=== PATIENT | female | born 1955 | race Caucasian/White ===

== ENCOUNTER 2021-05-03 16:16 | Inpatient (IN) | payer MEDICARE, OTHER, SELFPAY ==
[2021-05-03] VITALS (7 sets, daily range): BP systolic 100–116; BP diastolic 76–89; PULSE 79–109; RESP 18–22; TEMP 35.9–36.9; O2SAT 89–97; BMI 29.0; BMI 29.9
--- NOTE | 2021-05-03 17:27 | EKG12_ITS ---
Test Reason : SOB Blood Pressure : / mmHG Vent. Rate : 098 BPM Atrial Rate : 098 BPM P-R Int : 142 ms QRS Dur : 070 ms QT Int : 344 ms P-R-T Axes : 034 004 010 degrees QTc Int : 439 ms Normal sinus rhythm Nonspecific T wave abnormality Abnormal ECG Confirmed by REMIGIO ROSADO, PROSPER ([id number]), deputy editor in chief ELADIA ZAFAR ([id number]) on 05/05/2021 9:12:57 AM Referred By: TERE/APRIL Confirmed By:PROSPER FLOOD MD
--- NOTE | 2021-05-03 17:27 | RAD_ITS ---
STUDY: X-RAY CHEST REASON FOR EXAM: Female, 65 years old. cough TECHNIQUE: AP portable COMPARISON: None. FINDINGS: Diminished inspiratory effort is seen. There is minor atelectasis or infiltrate seen at the right base and more pronounced consolidation in left lower lobe with possible tiny effusion.. There is no demonstrated pleural abnormality. Normal size heart. Normal mediastinum and adeola. Normal visualized pulmonary arteries. Normal visualized aortic arch and descending thoracic aorta. Dorsal spine demonstrates mild scoliosis. Normal visualized ribs, clavicles, and shoulders. There is no demonstrated abnormality of the visualized soft tissue structures of the upper abdomen. RAD/Chest 1 View (Portable) IMPRESSION: Diminished inspiratory effort and mild right basilar atelectasis or infiltrate in the right lower lobe and more pronounced infiltrate at the left base with possible tiny effusion Electronically Signed: Kamar Butt MD at 18:33 EDT , Service support ,
--- NOTE | 2021-05-03 17:31 | NURSING ---
NO OLD EKGS
[2021-05-03] MEDS: Acetaminophen 500 MG Tablet 1000 MG PO (17:53)
--- NOTE | 2021-05-03 18:01 | EDS_ITS ---
HPI History of Present Illness Chief Complaint: Shortness of Breath Informant: patient Narrative Narrative: Patient is a 65-year-old female that denies any significant past medical history presenting with worsening cough, shortness of breath and chest pain. Patient was diagnosed with Covid at the [facility] urgent care on 04/29. She notes she started having symptoms a week before that. It started with a cough and then she had 2 days of fever, decreased appetite and body aches. Her cough is persisted and she had a chest x-ray on the third that showed pneumonia from Covid. She was placed on doxycycline, albuterol and Mucinex. She does not wear oxygen at home. Her symptoms have worsened today so she came to the emergency room to be evaluated further. She states she does not have a home pulse oximeter. She has not had her Covid vaccine. No other complaints at this time. PFSH PFSH Home Medications albuterol sulfate [ProAir HFA] 2 puff INHALATION Q4H PRN 05/03/21 [History Last Taken 05/03/21] doxycycline hyclate 100 mg PO BID 05/03/21 [History Last Taken 05/03/21] guaifenesin [Mucinex] 600 mg PO BID 05/03/21 [History Last Taken 05/03/21] Allergy/AdvReac Type Severity Reaction Status Date / Time No Known Allergies Allergy Verified 05/03/21 16:20 Family History Sister Uterine cancer Social History Smoking Status: Never smoker alcohol intake: never substance use type: does not use ROS ROS ED Constitutional Constitutional ED: Reports chills and fever(s) Eyes Eyes: Denies blurry vision or change in vision ENT ENT ED: Reports other Details: dry mouth ; Denies ear pain, rhinorrhea or sore throat Cardiovascular Cardiovascular: Reports chest pain; Denies palpitations Respiratory/Chest Respiratory/Chest: Reports cough, dyspnea and dyspnea on exertion; Denies sputum Gastrointestinal Gastrointestinal: Denies abdominal pain, diarrhea, nausea or vomiting Genitourinary Genitourinary ED: Denies dysuria Musculoskeletal Musculoskeletal: Reports myalgias; Denies arthralgias Integumentary Denies rash Neurologic Neurologic: Reports headache(s) and weakness Psychiatric Psychiatric: Denies anxiety or depression EXAM Physical Exam Const Vital Signs: 05/03/21 16:17 05/03/21 16:22 05/03/21 17:53 Temperature 97.5 F L Temperature Source Temporal Pulse Rate 109 H 106 H Respiratory Rate 20 H 18 Respiratory Effort Respiratory Pattern Blood Pressure 100/79 Blood Pressure Mean 86 Pulse Ox 89 92 93 Oxygen Delivery Method Room Air Nasal Cannula Nasal Cannula Oxygen Flow Rate (L/min) 2 2 05/03/21 17:57 05/03/21 20:06 Temperature 96.7 F L Temperature Source Temporal Pulse Rate 83 Respiratory Rate 22 H Respiratory Effort Normal Non-Labored Respiratory Pattern Normal Blood Pressure 116/89 H Blood Pressure Mean 98 Pulse Ox 97 Oxygen Delivery Method Nasal Cannula Oxygen Flow Rate (L/min) 2 Positive well nourished and well developed General Appearance ED: well developed and NAD HEENT Reports TM's clear and dry mucous membranes atraumatic Tympanic Membrane ED: Yes TM's clear Mouth ED: Yes dry mucous membranes Mouth: dry mucous membranes Eyes PERRL and EOMs intact bilaterally Neck no lymphadenopathy, supple and no meningeal signs Chest Wall Chest Narrative: Tenderness palpation in the mid chest Resp normal respiratory effort Auscultation: diminished lung sounds bilateral lower; Negative for wheezes Cardio regular rate, regular rhythm and no murmurs GI non-tender and non-distended Auscultation: normoactive bowel sounds Palpation: soft Back/Spine normal to inspection Extremity normal to inspection General Extremety ED: Negative for edema or tenderness General Extremity: Negative for edema Neuro oriented x3 Neuro Narrative: No focal deficits appreciated Sensorium / Orientation: alert Motor Exam: general weakness Psych mental status grossly normal Thought Process: normal thought process Skin Lesions: no lesions Rashes: no rashes MDM MDM MDM Narrative Medical decision making narrative: Patient is evaluated for increased shortness of breath, cough and overall feeling unwell in the setting of a Covid diagnosis. She has been on doxycycline for the past 4 days as well for possible superimposed pneumonia and is not improving. Patient is requiring supplemental oxygen. She does not have a leukocytosis and her CMP is largely unremarkable. Lactate is normal. D-dimer is elevated and CTA performed. It shows findings consistent with Covid pneumonia as well as concern for possible superimposed bacterial pneumonia. Concerning patient feels that she is getting worse and is having increased hypoxia in the setting of possible bacterial and viral pneumonia she will require admission as she has failed outpatient antibiotics. Patient is agreeable with this plan of care. She is given Decadron, azithromycin and Rocephin in the emergency room. Lab Data Attestation: I reviewed the patient's lab results. Labs: Laboratory Results - last 24 hr 05/03/21 05/03/21 05/03/21 17:50 17:50 17:50 WBC 7.1 RBC 5.72 H Hgb 15.4 H Hct 47.9 H MCV 83.7 MCH 26.9 L MCHC 32.2 RDW Std Deviation 37.7 RDW Coeff of Tc 12.4 Plt Count 199 MPV 10.9 Immature Gran % (Auto) 0.600 Neut % (Auto) 79.9 H Lymph % (Auto) 10.9 L [place] % (Auto) 8.5 Eos % (Auto) 0.0 Baso % (Auto) 0.1 Absolute Neuts (auto) 5.6 Absolute Lymphs (auto) 0.77 L Nucleated RBC % 0 D-Dimer Quant (PE/DVT) 0.85 H* Sodium 135 L Potassium 3.6 Chloride 100 Carbon Dioxide 27.0 Anion Gap 8 BUN 16 Creatinine 0.63 Estim Creat Clear Calc 63.95 Est GFR (MDRD) Af Amer 122 Est GFR (MDRD) Non-Af 101 BUN/Creatinine Ratio 25.5 H Glucose 108 H Lactic Acid Calcium 9.0 Total Bilirubin 0.80 AST 25 ALT 25 Alkaline Phosphatase 147 H Troponin I High Sens 5 Total Protein 8.2 Albumin 3.2 Globulin 5.0 H Albumin/Globulin Ratio 0.6 L Procalcitonin 05/03/21 05/03/21 17:50 17:50 WBC RBC Hgb Hct MCV MCH MCHC RDW Std Deviation RDW Coeff of Tc Plt Count MPV Immature Gran % (Auto) Neut % (Auto) Lymph % (Auto) [place] % (Auto) Eos % (Auto) Baso % (Auto) Absolute Neuts (auto) Absolute Lymphs (auto) Nucleated RBC % D-Dimer Quant (PE/DVT) Sodium Potassium Chloride Carbon Dioxide Anion Gap BUN Creatinine Estim Creat Clear Calc Est GFR (MDRD) Af Amer Est GFR (MDRD) Non-Af BUN/Creatinine Ratio Glucose Lactic Acid 1.4 Calcium Total Bilirubin AST ALT Alkaline Phosphatase Troponin I High Sens Total Protein Albumin Globulin Albumin/Globulin Ratio Procalcitonin 0.04 Radiography Chest X-Ray - ED: 1 View, Read by ED Physician, Read by Radiologist and - (Multifocal infiltrates) Diagnostic Testing: Radiology Impression Chest X-Ray 05/03/21 17:27 IMPRESSION: Diminished inspiratory effort and mild right basilar atelectasis or infiltrate in the right lower lobe and more pronounced infiltrate at the left base with possible tiny effusion Electronically Signed: Kamar Butt MD at 18:33 EDT , Service support , Chest CTA 05/03/21 18:48 IMPRESSION: Findings which may be consistent with Covid 19 pneumonia with coexisting bilateral lower lobe infiltrates possibly representing superimposed bacterial pneumonia. Clinical correlation recommended No evidence for pulmonary embolus Electronically Signed: Kamar Butt MD at 20:18 EDT , Service support , Rhythm Strip Rhythm Strip: Sinus Rhythm Rate: 98 Ectopy: None EKG Initial EKG: Attestation: I personally reviewed and interpreted this EKG as follows: Interpretation: Sinus Rhythm Comments: Normal sinus rhythm at a rate of 98 Subtle left axis deviation Normal intervals Discharge Plan Dx/Rx/DC Orders Clinical Impression: COVID-19, Pneumonia, Acute respiratory failure with hypoxia Disposition Disposition: Acute Care [facility] Discharge Date/Time: 05/03/21 21:24
[2021-05-03 18:06] LABS: Absolute Lymphocyte Count 0.77 X10^3/uL (0.83-4.51); Absolute Neutrophil Count 5.6 X10^3/uL (2.0-7.7); Basophil# 0.01 X10^3/uL; Basophil% 0.1 % (0-1); Hematocrit 47.9 % (37-47); Hemoglobin 15.4 g/dL (12.0-15.0); Lymphocyte # 0.77 X10^3/ul (0.83-4.51); Lymphocyte % 10.9 % (19-41); Mean Corp Hgb Conc 32.2 g/dL (32-36); Mean Corpuscular Hgb 26.9 pg (27.0-32.0); Mean Corpuscular Volume 83.7 fL (81-99); Mean Platelet Vol. 10.9 fl (6.2-12.0); Monocyte% 8.5 % (0-10); NRBC Flagged by Analyzer 0 % (0-5); Neutrophil # 5.63 X10^3/uL (2.7-7.7); Neutrophil % 79.9 % (47-70); Platelet Count 199 K/mm3 (150-450); RBC Distribution Width CV 12.4 % (11.6-14.6); RBC Distribution Width SD 37.7 fl (35.1-43.9); Red Blood Count 5.72 M/mm3 (4.2-5.4); White Blood Count 7.1 K/mm3 (4.4-11.0)
[2021-05-03 18:25] LABS: ALB/GLOB Ratio 0.6 RATIO (0.9-2.4); AST(SGOT) 25 U/L (15-37); Alanine Aminotransfer ALT/SGPT 25 U/L (13-56); Albumin, Serum 3.2 g/dL (3.2-5.0); Alkaline Phosphatase 147 U/L (45-117); Anion Gap 8 (5-15); BUN 16 mg/dL (7-18); BUN/Creat Ratio 25.5 RATIO (10-20); Chloride 100 mmol/L (98-107); Creatinine, Serum 0.63 mg/dL (0.55-1.02); EST Glomerular Filtration Rate 101 mL/min (>60); Est Glom Filt Rate - Afr Amer 122 mL/min (>60); Estimated Creatinine Clearance 63.95 ml/min; Glucose 108 mg/dL (74-106); Potassium 3.6 mmol/L (3.5-5.1); Protein, Total 8.2 g/dL (6.4-8.2); Sodium Level 135 mmol/L (136-145); Troponin-I HS 5 pg/mL (3.0-54.0)
[2021-05-03 18:33] LABS: Lactic Acid 1.4 mmol/L (0.4-1.9)
[2021-05-03 18:39] LABS: Procalcitonin 0.04 ng/mL (0.00-0.09)
[2021-05-03 18:41] LABS: D-Dimer Quantitative (DVT/PE) 0.85 FEU/ug/m (0.27-0.49)
--- NOTE | 2021-05-03 18:48 | CT_ITS ---
STUDY: CTA CHEST REASON FOR EXAM: Female, 65 years old. hypoxia, elevated dimer + COVID RADIATION DOSAGE (If Supplied By Facility): CTDIvol = ( 9.42 ) mGy, DLP = ( 379.20 ) mGycm TECHNIQUE: The examination was performed with the intravenous administration of IV 75mL Isovue-370. Post-processing of the angiographic images was performed, with multiplanar reformation and 3D reconstruction. Individualized dose optimization techniques were used for this CT. COMPARISON: Portable chest 05/03/2021 FINDINGS: Normal enhancement of the main pulmonary artery and right and left pulmonary arteries. Normal enhancement of the bilateral peripheral pulmonary arteries. There is no demonstrated pulmonary embolism. Normal thoracic aorta and visualized great vessels. There is no demonstrated aortic dissection. Heart size is normal. Minor coronary artery calcification.. Normal mediastinum. Normal hilar regions. Normal visualized trachea and bronchi. The lungs are well expanded. There are patchy areas of groundglass opacity in left upper lobe to lesser extent in the right upper lobe. There are also areas of more pronounced focal consolidation in the lower lobes bilaterally Normal pleura. Normal chest wall structures. Dorsal spine demonstrates mild spondylosis. Nonspecific fatty infiltration of the liver. CT/CTA Chest W/WO Contrast IMPRESSION: Findings which may be consistent with Covid 19 pneumonia with coexisting bilateral lower lobe infiltrates possibly representing superimposed bacterial pneumonia. Clinical correlation recommended No evidence for pulmonary embolus Electronically Signed: Kamar Butt MD at 20:18 EDT , Service support ,
[2021-05-03] MEDS: dexAMETHasone 4 MG Tablet 6 MG PO (21:03)
[2021-05-03] MEDS: Ceftriaxone 1 GM/50 ML BAG IV (21:16)
--- NOTE | 2021-05-03 22:06 | HP.PCM_ITS ---
Documented by User: ANTONY Downs 05/03/21 22:25 HPI - General General Date of Admission: 05/03/21 Date of Service: 05/03/21 Chief Complaint: Shortness of breath HPI Narrative ARCADIO DAVE, is a 65 F who presents with shortness of breath. Patient states that she was seen at the [facility] urgent care on 9 intermittent notes with Covid. Patient states that her symptoms started a week before that. Patient states that she was placed on doxycycline, albuterol and Mucinex for pneumonia. Patient states that she has continued become more short of breath and her cough has worsened. Patient states that she was not vaccinated for Covid. Patient denies fever, chills, chest pain, nausea, vomiting. Patient states that she has had a decreased appetite and feels generally weak. PFSH no medical history Home Medications albuterol sulfate [ProAir HFA] 2 puff INHALATION Q4H PRN 05/03/21 [History Last Taken 05/03/21] doxycycline hyclate 100 mg PO BID 05/03/21 [History Last Taken 05/03/21] guaifenesin [Mucinex] 600 mg PO BID 05/03/21 [History Last Taken 05/03/21] Allergy/AdvReac Type Severity Reaction Status Date / Time No Known Allergies Allergy Verified 05/03/21 16:20 Family History Sister Uterine cancer no surgical history Social History Smoking Status: Never smoker alcohol intake: never substance use type: does not use ROS Constitutional Constitutional: Reports fatigue, malaise and weakness; Denies anorexia, chills or fever(s) Cardiovascular Cardiovascular: Denies chest pain, edema or palpitations Respiratory/Chest Respiratory/Chest: Reports cough, shortness of breath at rest, shortness of br eath with exertion and wheezing Gastrointestinal Gastrointestinal: Denies abdominal pain, constipation, diarrhea, nausea or vom iting Genitourinary Genitourinary: Denies dysuria Musculoskeletal Musculoskeletal: Denies back pain, extremity pain, joint pain or joint stiffness Integumentary Integumentary: Denies dry skin Neurologic Neurologic: Denies abnormal gait, abnormal speech, confusion or dizziness Psychiatric Psychiatric: Denies anxiety or depression Endocrine Endocrinology: Denies change in body appearance Hematologic/Lymphatic Hematologic/Lymphatic: Denies anemia, easy bleeding or easy bruising Vital Signs Vital Signs Vital Signs: 05/03/21 16:17 05/03/21 16:22 05/03/21 17:53 Temperature 97.5 F L Temperature Source Temporal Pulse Rate 109 H 106 H Respiratory Rate 20 H 18 Respiratory Effort Respiratory Pattern Blood Pressure 100/79 Blood Pressure Mean 86 Blood Pressure Source Blood Pressure Position Blood Pressure Location Pulse Ox 89 92 93 Oxygen Delivery Method Room Air Nasal Cannula Nasal Cannula Oxygen Flow Rate (L/min) 2 2 05/03/21 17:57 05/03/21 20:06 05/03/21 21:17 Temperature 96.7 F L 96.7 F L Temperature Source Temporal Temporal Pulse Rate 83 83 Respiratory Rate 22 H 22 H Respiratory Effort Normal Non-Labored Respiratory Pattern Normal Blood Pressure 116/89 H 116/89 H Blood Pressure Mean 98 98 Blood Pressure Source Blood Pressure Position Blood Pressure Location Pulse Ox 97 97 Oxygen Delivery Method Nasal Cannula Nasal Cannula Oxygen Flow Rate (L/min) 2 2 05/03/21 21:53 Temperature 98.4 F Temperature Source Oral Pulse Rate 79 Respiratory Rate 18 Respiratory Effort Respiratory Pattern Blood Pressure 114/76 Blood Pressure Mean 88 Blood Pressure Source Monitor Blood Pressure Position Supine Blood Pressure Location Left Arm Pulse Ox 96 Oxygen Delivery Method Nasal Cannula Oxygen Flow Rate (L/min) 2 Weight Weight: 153 lb 3.2 oz Body Mass Index (BMI) 29.9 Physical Exam Const alert, oriented x3 and no apparent distress General Appearance: cooperative HEENT normocephalic and head/scalp atraumatic Eyes conjunctivae normal and no scleral icterus Resp normal respiratory effort, normal air movement and clear to auscultation bilaterally Cardio regular rate, regular rhythm, S1 normal heart sound, S2 normal heart sound and peripheral pulses 2+ throughout GI normal to inspection, nondistended, normoactive bowel sounds, soft to palpation and non-tender Extremity normal capillary refill and no clubbing, cyanosis or edema General Extremity: no tenderness to palpation of joints or extremities Skin General Skin Exam: no breakdown and turgor normal Lesions: no lesions Rashes: no rashes Neuro no focal motor deficits and no sensory deficits noted Speech: speech normal Motor Exam: general weakness Psych thought process normal, cooperative and affect normal Appearance: appropriate Results Lab / Micro Data Result Diagrams: 05/03/21 17:50 05/03/21 17:50 Labs: Laboratory Results - last 24 hr 05/03/21 17:50: WBC 7.1, RBC 5.72 H, Hgb 15.4 H, Hct 47.9 H, MCV 83.7, MCH 26.9 L, MCHC 32.2, RDW Std Deviation 37.7, RDW Coeff of Tc 12.4, Plt Count 199, MPV 10.9, Immature Gran % (Auto) 0.600, Neut % (Auto) 79.9 H, Lymph % (Auto) 10.9 L, [place] % (Auto) 8.5, Eos % (Auto) 0.0, Baso % (Auto) 0.1, Absolute Neuts (auto) 5.6, Absolute Lymphs (auto) 0.77 L, Nucleated RBC % 0 05/03/21 17:50: D-Dimer Quant (PE/DVT) 0.85 H* 05/03/21 17:50: Sodium 135 L, Potassium 3.6, Chloride 100, Carbon Dioxide 27.0, Anion Gap 8, BUN 16, Creatinine 0.63, Estim Creat Clear Calc 63.95, Est GFR (MDRD) Af Amer 122, Est GFR (MDRD) Non-Af 101, BUN/Creatinine Ratio 25.5 H, Glucose 108 H, Calcium 9.0, Total Bilirubin 0.80, AST 25, ALT 25, Alkaline Phosphatase 147 H, Troponin I High Sens 5, Total Protein 8.2, Albumin 3.2, Globulin 5.0 H, Albumin/Globulin Ratio 0.6 L 05/03/21 17:50: Lactic Acid 1.4 05/03/21 17:50: Procalcitonin 0.04 Radiology Impression Chest X-Ray 05/03/21 17:27 IMPRESSION: Diminished inspiratory effort and mild right basilar atelectasis or infiltrate in the right lower lobe and more pronounced infiltrate at the left base with possible tiny effusion Electronically Signed: Kamar Butt MD at 18:33 EDT , Service support , Chest CTA 05/03/21 18:48 IMPRESSION: Findings which may be consistent with Covid 19 pneumonia with coexisting bilateral lower lobe infiltrates possibly representing superimposed bacterial pneumonia. Clinical correlation recommended No evidence for pulmonary embolus Electronically Signed: Kamar Butt MD at 20:18 EDT , Service support , Assessment & Plan Assessment/Plan (1) COVID-19: (2) Pneumonia: QUALIFIERS: Laterality: bilateral Lung location: lower lobe of lung Pneumonia type: due to unspecified organism Qualified Code(s): J18.9 - Pneumonia, unspecified organism PLAN: 1. COVID-19 with superimposed bacterial pneumonia -Admit to PCU for pulse ox monitoring -PO azithromycin, IV ceftriaxone orderd -PO decadron ordered -Urine legionella and strep pneumoniae ordered, sputum culture ordered. Blood culture pending. -CBC and BMP daily -Encourage IS -O2 per protocol, patient currently on 4L n/c -Covid precautions in place -D-dimer elevated, CTA negative. DVT prophylaxis-SC Lovenox This patient was seen by ANTONY Downs under the supervision of Dr. Chambers. Documented by User: Dr. Parviz Chambers MD 05/03/21 23:43 HPI - General General Date of Admission: 05/03/21 PFSH Home Medications albuterol sulfate [ProAir HFA] 2 puff INHALATION Q4H PRN 05/03/21 [History Last Taken 05/03/21] doxycycline hyclate 100 mg PO BID 05/03/21 [History Last Taken 05/03/21] guaifenesin [Mucinex] 600 mg PO BID 05/03/21 [History Last Taken 05/03/21] Allergy/AdvReac Type Severity Reaction Status Date / Time No Known Allergies Allergy Verified 05/03/21 16:20 Family History Sister Uterine cancer Social History (Reviewed 05/03/21 @ 22:15 by Christy Perez Smoking Status: Never smoker alcohol intake: never substance use type: does not use Results Lab / Micro Data Result Diagrams: 05/03/21 17:50 05/03/21 17:50 Assessment & Plan Assessment/Plan (1) Acute respiratory failure with hypoxia: Charges/Coding Addendum Addendum: Dr. Chambers: I personally reviewed the chart and examined the patient, and agree with the above findings. 65-year-old female presents from home with worsening shortness of breath and coughing consistent with acute hypoxic respiratory failure secondary to COVID-19 pneumonia and a possible bacterial superinfection. She started having symptoms about 11 days ago and tested positive for Covid a few days ago. She is on 2 L nasal cannula however had an elevated D-dimer so a CTA was performed which showed potential superimposed bacterial pneumonia on top of a Covid infection. She had been on doxycycline as an outpatient. We will obtain a sputum culture and placed on Decadron. We will also obtain Legionella antigens as well as strep antigens and start her on antibiotics with. I had discussion on CODE STATUS as well as potential need for intubation if things were to worsen with Covid, this took approximately 20 minutes. She is unsure about intubation and states that she would like to discuss it if she gets closer to needing to be intubated. Visit Charges Inpatient E&M: 82631 Init Hosp L3 Procedures Hospitalists Procedures: 75097 Advncd Care Plan 30 Min
[2021-05-03] MEDS: Enoxaparin 40 MG/0.4 ML Syringe 30 MG SC (23:19)
[2021-05-03] MEDS: 0.9% Saline Lock 10 ML Syringe IV (23:21)
--- NOTE | 2021-05-03 23:41 | PCS.PANDOC ---
PANDEMIC DOCUMENTATION INITIATED: Date: 04/11/2021 Time: 190
[2021-05-04] VITALS (7 sets, daily range): BP systolic 107–123; BP diastolic 62–71; PULSE 70–102; RESP 18–20; TEMP 35.8–37.8; O2SAT 93–96
[2021-05-04 06:00] LABS: Absolute Lymphocyte Count 0.52 X10^3/uL (0.83-4.51); Absolute Neutrophil Count 2.6 X10^3/uL (2.0-7.7); Basophil# 0.01 X10^3/uL; Basophil% 0.3 % (0-1); Hematocrit 43.6 % (37-47); Hemoglobin 13.8 g/dL (12.0-15.0); Lymphocyte # 0.52 X10^3/ul (0.83-4.51); Lymphocyte % 15.9 % (19-41); Mean Corp Hgb Conc 31.7 g/dL (32-36); Mean Corpuscular Hgb 26.8 pg (27.0-32.0); Mean Corpuscular Volume 84.8 fL (81-99); Mean Platelet Vol. 10.7 fl (6.2-12.0); Monocyte# 0.16 X10^3/uL; Monocyte% 4.9 % (0-10); NRBC Flagged by Analyzer 0 % (0-5); Neutrophil # 2.57 X10^3/uL (2.7-7.7); Neutrophil % 78.3 % (47-70); POSITIVE DIFFERENTIAL YES; Platelet Count 183 K/mm3 (150-450); RBC Distribution Width CV 12.3 % (11.6-14.6); RBC Distribution Width SD 38.3 fl (35.1-43.9); Red Blood Count 5.14 M/mm3 (4.2-5.4); White Blood Count 3.3 K/mm3 (4.4-11.0)
[2021-05-04 06:29] LABS: Anion Gap 6 (5-15); BUN 12 mg/dL (7-18); BUN/Creat Ratio 23.5 RATIO (10-20); Calcium,Total 8.8 mg/dL (8.5-10.1); Chloride 106 mmol/L (98-107); Creatinine, Serum 0.51 mg/dL (0.55-1.02); EST Glomerular Filtration Rate 128 mL/min (>60); Est Glom Filt Rate - Afr Amer 155 mL/min (>60); Estimated Creatinine Clearance 78.99 ml/min; Glucose 146 mg/dL (74-106); Potassium 3.8 mmol/L (3.5-5.1); Sodium Level 138 mmol/L (136-145)
[2021-05-04 06:37] LABS: Differential Indicated SCAN CRITERIA MET
[2021-05-04 06:50] LABS: Differential Comment SCANNED; Pathologist Review May foll
[2021-05-04] MEDS: Enoxaparin 40 MG/0.4 ML Syringe 30 MG SC ×2 (08:02→21:46)
[2021-05-04] MEDS: dexAMETHasone 2 MG TABLET 6 MG PO (08:02)
--- NOTE | 2021-05-04 08:46 | PCM.PN.HOSP ---
Subjective Subjective Patient was admitted yesterday with 2 weeks symptoms of persistent cough. Initially she had 3 days of nausea, low-grade fever which is resolved about more than a week ago. Patient is hypoxic, dyspnea on minimal to mild exertion even on conversation. Patient states her baseline health is good and does not have cardiac disease or chronic pulmonary disease. She quit smoking long time ago. Objective Data Objective Data Vital Signs: Vital Signs Temp Pulse Resp BP Pulse Ox 96.5 F L 70 18 123/70 H 94 05/04/21 08:00 05/04/21 08:00 05/04/21 08:00 05/04/21 08:00 05/04/21 08:00 Oxygen Flow Rate (L/min) 2 Oxygen Delivery Method Nasal Cannula Weight: 153 lb 3.2 oz Body Mass Index (BMI) 29.9 Intake & Output: Intake and Output for Last 24 Hours 05/02/21 05/03/21 05/04/21 23:59 23:59 23:59 Intake Total 805 / 1005 440 / 440 Balance 805 / 1005 440 / 440 Lab / Micro Data Result Diagrams: 05/04/21 05:47 05/04/21 05:47 Labs: Laboratory Results - last 24 hr 05/03/21 17:50: WBC 7.1, RBC 5.72 H, Hgb 15.4 H, Hct 47.9 H, MCV 83.7, MCH 26.9 L, MCHC 32.2, RDW Std Deviation 37.7, RDW Coeff of Tc 12.4, Plt Count 199, MPV 10.9, Immature Gran % (Auto) 0.600, Neut % (Auto) 79.9 H, Lymph % (Auto) 10.9 L, [place] % (Auto) 8.5, Eos % (Auto) 0.0, Baso % (Auto) 0.1, Absolute Neuts (auto) 5.6, Absolute Lymphs (auto) 0.77 L, Nucleated RBC % 0 05/03/21 17:50: D-Dimer Quant (PE/DVT) 0.85 H* 05/03/21 17:50: Sodium 135 L, Potassium 3.6, Chloride 100, Carbon Dioxide 27.0, Anion Gap 8, BUN 16, Creatinine 0.63, Estim Creat Clear Calc 63.95, Est GFR (MDRD) Af Amer 122, Est GFR (MDRD) Non-Af 101, BUN/Creatinine Ratio 25.5 H, Glucose 108 H, Calcium 9.0, Total Bilirubin 0.80, AST 25, ALT 25, Alkaline Phosphatase 147 H, Troponin I High Sens 5, Total Protein 8.2, Albumin 3.2, Globulin 5.0 H, Albumin/Globulin Ratio 0.6 L 05/03/21 17:50: Lactic Acid 1.4 05/03/21 17:50: Procalcitonin 0.04 05/04/21 05:47: WBC 3.3 L, RBC 5.14, Hgb 13.8, Hct 43.6, MCV 84.8, MCH 26.8 L, MCHC 31.7 L, RDW Std Deviation 38.3, RDW Coeff of Tc 12.3, Plt Count 183, MPV 10.7, Immature Gran % (Auto) 0.600, Neut % (Auto) 78.3 H, Lymph % (Auto) 15.9 L, [place] % (Auto) 4.9, Eos % (Auto) 0.0, Baso % (Auto) 0.3, Absolute Neuts (auto) 2.6, Absolute Lymphs (auto) 0.52 L, Nucleated RBC % 0, Differential Comment SCANNED, Diff Path Review December05/04/21 05:47: Sodium 138, Potassium 3.8, Chloride 106, Carbon Dioxide 26.0, Anion Gap 6, BUN 12, Creatinine 0.51 L, Estim Creat Clear Calc 78.99, Est GFR (MDRD) Af Amer 155, Est GFR (MDRD) Non-Af 128, BUN/Creatinine Ratio 23.5 H, Glucose 146 H, Calcium 8.8 Micro: Microbiology 05/04/21 07:55 Urine, Clean Catch Streptococcus pneumoniae Antigen (M - Final 05/04/21 07:55 Urine, Clean Catch Legionella Antigen - Final Radiography Diagnostic Testing: Radiology Impression Chest X-Ray 05/03/21 17:27 IMPRESSION: Diminished inspiratory effort and mild right basilar atelectasis or infiltrate in the right lower lobe and more pronounced infiltrate at the left base with possible tiny effusion Electronically Signed: Kamar Butt MD at 18:33 EDT , Service support , Chest CTA 05/03/21 18:48 IMPRESSION: Findings which may be consistent with Covid 19 pneumonia with coexisting bilateral lower lobe infiltrates possibly representing superimposed bacterial pneumonia. Clinical correlation recommended No evidence for pulmonary embolus Electronically Signed: Kamar Butt MD at 20:18 EDT , Service support , Rhythm Strip Rhythm Strip: Sinus Rhythm Rate: 98 Ectopy: None Physical Exam Narrative General: Alert, Oriented x3, Cooperative HEENT: Atraumatic, PERRLA, EOMI, Normocephalic Oral: No Gingival or Mucosal Lesions/ Ulcerations Neck: Supple, No JVD, Negative Carotid Bruits Lungs: Dyspnea on minimal to mild exertion. Air entry diminished in bilateral lung bases. No crepitation/rhonchi Cardiovascular: Regular rate, Regular Rhythm, Normal S1, Normal S2, No murmurs Abdomen: Bowel Sounds Present, Soft, Non Tender, Non-Distended : No renal angle tenderness. No suprapubic tenderness. Extremities: No edema, Capillary Refill Less than 3 Seconds Skin: No rashes, No breakdown Musculoskeletal: No Tenderness to Palpation of Joints or Extremities Neurological: Cranial nerves II-XII grossly intact, DTR 2+/4 and Symmetrical, Neuro grossly intact Psych/Mental Status: Normal Affect, Appropriate. Assessment & Plan Assessment/Plan (1) Acute respiratory failure with hypoxia: (2) Pneumonia: QUALIFIERS: Pneumonia type: due to unspecified organism Laterality: bilateral Lung location: lower lobe of lung Qualified Code(s): J18.9 - Pneumonia, unspecified organism (3) COVID-19: PLAN: 1. Acute hypoxic respiratory failure secondary to bilateral Covid pneumonia with superimposed bacterial pneumonia: Patient is being admitted in PCU. Chest x-ray and CTA chest reviewed. CTA chest consistent with COVID-19 pneumonia with bilateral lower lobe infiltrates with superimposed bacterial pneumonia. No pulmonary embolism. Oxygen supplement to keep pulse ox 90%. on IV ceftriaxone and Zithromax. On Decadron. Incentive spirometry and Pep and Mucinex D. Bronchodilator as needed for shortness of breath. Gram stain of sputum culture shows 3+ gram-positive cocci, 2+ gram-positive rods. Urinary antigens are negative. 2. VTE prophylaxis: Lovenox 30 mg subcu twice daily Clinical Impression(s) from Imaging Studies Chest X-Ray 05/03/21 17:27 IMPRESSION: Diminished inspiratory effort and mild right basilar atelectasis or infiltrate in the right lower lobe and more pronounced infiltrate at the left base with possible tiny effusion Chest CTA 05/03/21 18:48 IMPRESSION: Findings which may be consistent with Covid 19 pneumonia with coexisting bilateral lower lobe infiltrates possibly representing superimposed bacterial pneumonia. Clinical correlation recommended No evidence for pulmonary embolus Charges/Coding Visit Charges Inpatient E&M: 71803 Subs Hosp L2
--- NOTE | 2021-05-04 11:15 | CASEMGMT ---
LIBBY MONK Face to Face with patient for initial transition planning/care coordination assessment. RN ALESHIA introduced self and role at [facility]. Patient lying in bed, alert and oriented. Patient willing to participate in assessment and is able to answer all questions appropriately. Care providers, pharmacy, and demographics verified. Patient wishes to discharge home, will monitor for HHC and home oxygen pending progress. Patient states she has no further needs or concerns at this time. CM to follow for discharge planning needs that may arise. PCP: [facility] Specialists: none Preferred Pharmacy: [facility] Retail at discharge Insurance: Rut GANT Prescription Benefit: yes Living Will/HPOA: no but in the process of completing LNOK: son, DIL Living Arrangements: Patient lives with son and DIL in a home. Patient lives in basement apartment with stair lift. Patient states she is independent at home. Mulitple family members sick with covid and whole family isolating at home. Transportation: self/son/family DME/HHC: Patient states she has shower chair, cane, walker, hospital bed, raised toilet at home. No previous HHC. Patient was provided a list of DME providers consistent with the patient?s preferred geographic region, medical needs, and insurance network. The patient?s preferred provider is [facility]. Will monitor for need for home oxygen at discharge. Patient states she had covid testing completed at [facility] Urgent Care Disposition Plan: Patient to discharge home with family support and follow-up plans in place. Will monitor for HHC and home oxygen. Dana FRAIZER, RN, CM
--- NOTE | 2021-05-04 14:16 | CHAPLAIN ---
Type of Pastoral Visit _x__ Initial Visit ___ Follow-up Visit ___ On-call Visit ___ General Patient Visit ___ Spiritual Assessment ___ Family Conference ___ Bereavement ___ Rapid Response ___ Code Blue _x__ Other (describe below) Pastoral Care Referral From _x__ Patient ___ Family ___ Nurse ___ Physician ___ [employer]ber ___ Offshore [employer] Turbine Technician ___ Other (describe below) Sacrament/Intervention ___ Active listening ___ Anointing ___ Worship ___ Bereavement ___ Communion ___ Mariza exploration ___ ___ Life review _x__ Prayer ___ Reconciliation ___ Sacrament of Sick _x__ Supportive presence ___ Wedding ___ Other (describe below) Pastoral Comments patient answers the phone into this isolation room; offer of support and prayer given; pt welcomes prayer and says there are no other particular needs at this time
[2021-05-04] MEDS: guaiFENesin/D-Methorphan TAB.SR.12H 1 TABLET PO ×2 (16:33→21:46)
[2021-05-04] MEDS: Ceftriaxone 1 GM/50 ML BAG IV (21:46)
[2021-05-04] MEDS: Azithromycin 250 MG Tablet 500 MG PO (21:47)
[2021-05-04] MEDS: Acetaminophen 325 MG Tablet 650 MG PO (21:54)
[2021-05-04] MEDS: 0.9% Saline Lock 10 ML Syringe IV (22:03)
[2021-05-05 03:06] VITALS: BP 111/80; PULSE 77; RESP 20; TEMP 36.4; O2SAT 96
[2021-05-05] MEDS: 0.9% Saline Lock 10 ML Syringe IV (03:15)
[2021-05-05 03:20] VITALS: RESP 20
[2021-05-05 07:44] LABS: Absolute Lymphocyte Count 1.24 X10^3/uL (0.83-4.51); Basophil# 0.01 X10^3/uL; Basophil% 0.1 % (0-1); Hematocrit 41.6 % (37-47); Hemoglobin 13.1 g/dL (12.0-15.0); Lymphocyte # 1.24 X10^3/ul (0.83-4.51); Lymphocyte % 13.4 % (19-41); Mean Corp Hgb Conc 31.5 g/dL (32-36); Mean Corpuscular Hgb 27.2 pg (27.0-32.0); Mean Corpuscular Volume 86.5 fL (81-99); Monocyte# 0.94 X10^3/uL; Monocyte% 10.2 % (0-10); NRBC Flagged by Analyzer 0 % (0-5); Neutrophil # 7.01 X10^3/uL (2.7-7.7); Neutrophil % 75.9 % (47-70); Platelet Count 222 K/mm3 (150-450); RBC Distribution Width CV 12.4 % (11.6-14.6); RBC Distribution Width SD 39.7 fl (35.1-43.9); Red Blood Count 4.81 M/mm3 (4.2-5.4); White Blood Count 9.2 K/mm3 (4.4-11.0)
[2021-05-05 08:16] VITALS: O2SAT 91
[2021-05-05] MEDS: Enoxaparin 40 MG/0.4 ML Syringe 30 MG SC (08:19)
[2021-05-05] MEDS: dexAMETHasone 2 MG TABLET 6 MG PO (08:19)
[2021-05-05] MEDS: guaiFENesin/D-Methorphan TAB.SR.12H 1 TABLET PO (08:19)
[2021-05-05 08:27] VITALS: BP 113/61; PULSE 77; RESP 18; TEMP 37.2; O2SAT 94
[2021-05-05 08:28] VITALS: O2SAT 2; O2SAT 87; O2SAT 88; O2SAT 90
--- NOTE | 2021-05-05 09:49 | PCM.DC ---
Discharge Instructions Diet Discharge Diet: No restrictions Activity Discharge Activity: Return to Normal Activity Weight Bearing Status: Weight bearing as tolerated Dressing / Incision Call your doctor if you observe: Fever of 101 or Higher, Coldness, Increased Pain, Numbness or Tingling, Change in Color, Inability to urinate, Inability to have a bowel movement, Shortness of breath, Dizziness, Fainting spells, Swelling in the ankles, Chest pain, Prolonged hiccupping, Increased palpitations (irregular heartbeat), Calf discomfort and Uncontrolled pain Follow Up Care Test Results: Test results from this visit will be discussed in further detail at your follow-up appointment, if applicable. Discharge Plan Admission Admit Date/Time: 05/03/21 21:02 Attending Provider: Radames Salazar Primary Care Provider: Alejandro Berg Discharge Orders/Prescriptions Prescriptions: New levofloxacin 500 mg tablet 500 mg PO DAILY Qty: 5 RF: 0 dexamethasone 6 mg tablet 6 mg PO DAILY Qty: 7 RF: 0 Eliquis 2.5 mg tablet 2.5 mg PO BID Qty: 30 RF: 0 pseudoephedrine-guaifenesin [Mucinex D] 60-600 mg tablet extended release 12 hr 2 tab PO BID Qty: 28 RF: 0 Continued albuterol sulfate 90 mcg/actuation HFA aerosol inhaler 2 puff INHALATION Q4H PRN PRN (Reason: Shortness Of Breath) RF: 0 Discontinued doxycycline hyclate 100 mg capsule 100 mg PO BID RF: 0 guaifenesin [Mucinex] 600 mg Tablet Extended Release 12hr 600 mg PO BID RF: 0 Referrals / Follow Up: Alejandro Berg DO [Primary Care Provider] - Within 2 Weeks Disposition Disposition (needs filled in before D/C Order can be placed): Home, Self Care
--- NOTE | 2021-05-05 11:57 | CASEMGMT ---
Per Suzanna SOUZA, pt qualifies for 2L nc home oxygen at rest and 4L w/ exertion. Pt had stated [facility] for preference previously and is still agreeable at this time. Pt states no further concerns/needs with going home at this time. Pt to have meds sent to [facility] pharmacy so that she can just take them home with her. Pt voices no further questions/concerns/needs. Josue SOUZA CM
--- NOTE | 2021-05-05 11:58 | PCM.DC.SUM ---
Providers Date of Admission: 05/03/21 Primary Care Physician: Dr. Alejandro Berg, DO Reason For Visit: COVID WITH POSSIBLE BACTERIAL PNEUMONIA Diagnosis Discharge Diagnosis (1) Acute respiratory failure with hypoxia: Status: Acute Code(s): J96.01 - Acute respiratory failure with hypoxia (2) Pneumonia: Status: Acute Code(s): J18.9 - Pneumonia, unspecified organism Qualifiers: Laterality: bilateral Lung location: lower lobe of lung Pneumonia type: due to unspecified organism Qualified Code(s): J18.9 - Pneumonia, unspecified organism (3) COVID-19: Status: Acute Code(s): U07.1 - COVID-19 Medications at Discharge Home Medications albuterol sulfate 2 puff INHALATION Q4H PRN PRN 05/04/21 apixaban [Eliquis] 2.5 mg PO BID #30 tab 05/05/21 dexamethasone 6 mg PO DAILY #7 tab 05/05/21 levofloxacin 500 mg PO DAILY #5 tab 05/05/21 pseudoephedrine-guaifenesin [Mucinex D] 2 tab PO BID #28 tab 05/05/21 Hospital Course Summary of Care Provided Hospital Course: This 65-year-old female Was admitted with 2 weeks symptoms persistent cough. Earlier symptoms of nausea and low-grade fever resolved more than a week ago. She is she has dyspnea on moderate exertion and fatigue and cough 1. Acute hypoxic respiratory failure secondary to bilateral Covid pneumonia with superimposed bacterial pneumonia with extreme fatigue: Patient is being admitted in PCU. Chest x-ray and CTA chest reviewed. CTA chest consistent with COVID-19 pneumonia with bilateral lower lobe infiltrates with superimposed bacterial pneumonia. No pulmonary embolism. Oxygen supplement to keep pulse ox 90%. Patient was treated with IV ceftriaxone and Zithromax and Decadron. Advised to continue incentive spirometry and Pep and Mucinex D. Bronchodilator as needed for shortness of breath. Preliminary sputum culture shows normal respiratory evaristo. Urinary antigens are negative. Patient is discharged on Levaquin to complete a total of 7 days. Discharged on Eliquis, Mucinex D and patient has albuterol inhaler at home. 2. VTE prophylaxis: Lovenox 30 mg subcu twice daily discharge medication reconciliation done. Discharge follow-up instructions completed. Discharge process discussed with the patient and all questions were answered to patient's satisfaction. Total time spent, exact 35 minutes on discharge meds reconciliation, examination, coordination of care with nurses and ancillary staff, review of imaging and blood test and discussion with the patient on follow-up instructions. Home oxygen qualification test was done. Patient is ambulatory in home and in the community and requires home oxygen with portability. Physical Exam Narrative Seen and examined General: Alert, Oriented x3, Cooperative, severe fatigue HEENT: Atraumatic, PERRLA, EOMI, Normocephalic Oral: No Gingival or Mucosal Lesions/ Ulcerations Neck: Supple, No JVD, Negative Carotid Bruits Lungs: Air entry diminished in bilateral lung bases. No crepitation/rhonchi. Dyspnea on moderate exertion Cardiovascular: Regular rate, Regular Rhythm, Normal S1, Normal S2, No murmurs Abdomen: Bowel Sounds Present, Soft, Non Tender, Non-Distended : No renal angle tenderness. No suprapubic tenderness. Extremities: No edema, Capillary Refill Less than 3 Seconds Skin: No rashes, No breakdown Musculoskeletal: No Tenderness to Palpation of Joints or Extremities Neurological: Cranial nerves II-XII grossly intact, DTR 2+/4 and Symmetrical, Neuro grossly intact Psych/Mental Status: Normal Affect, Appropriate. Weight / BMI Weight Weight: 153 lb 3.187 oz Body Mass Index (BMI) 29.9 ABG / Lab / Microbiology Data Result Diagrams: 05/05/21 07:08 05/04/21 05:47 Laboratory: Laboratory Results - last 24 hr 05/05/21 07:08: WBC 9.2, RBC 4.81, Hgb 13.1, Hct 41.6, MCV 86.5, MCH 27.2, MCHC 31.5 L, RDW Std Deviation 39.7, RDW Coeff of Tc 12.4, Plt Count 222, MPV 11.0, Immature Gran % (Auto) 0.400, Neut % (Auto) 75.9 H, Lymph % (Auto) 13.4 L, [place] % (Auto) 10.2 H, Eos % (Auto) 0.0, Baso % (Auto) 0.1, Absolute Neuts (auto) 7.0, Absolute Lymphs (auto) 1.24, Nucleated RBC % 0 Microbiology: Microbiology 05/04/21 07:55 Sputum, Expectorated/Coughed Gram Stain - Final 09/08/21 07:55 Sputum, Expectorated/Coughed Respiratory Culture - Preliminary Appears to be normal respiratory evaristo. Further studies to follow. 05/04/21 07:55 Urine, Clean Catch Streptococcus pneumoniae Antigen (M - Final 05/04/21 07:55 Urine, Clean Catch Legionella Antigen - Final D/C Instructions Discharge Diet: No restrictions Weight Bearing Status: Weight bearing as tolerated Call your doctor if you observe: Fever of 101 or Higher, Coldness, Increased Pain, Numbness or Tingling, Change in Color, Inability to urinate, Inability to have a bowel movement, Shortness of breath, Dizziness, Fainting spells, Swelling in the ankles, Chest pain, Prolonged hiccupping, Increased palpitations (irregular heartbeat), Calf discomfort and Uncontrolled pain Meaningful Use Info Meaningful Use Diagnoses (Choose all that apply): None applicable Discharge Plan Admission Admit Date/Time: 05/03/21 21:02 Attending Provider: Radames Salazar Primary Care Provider: Alejandro Berg Instructions Additional Instructions / Restrictions: Patient Problems: Altered Health Status related to Hospitalization Patient Goals: *Optimal Level of Health *Keep Appointments *Medication Compliance *Remain Safe Discharge Orders/Prescriptions Prescriptions: New levofloxacin 500 mg tablet 500 mg PO DAILY Qty: 5 RF: 0 dexamethasone 6 mg tablet 6 mg PO DAILY Qty: 7 RF: 0 Eliquis 2.5 mg tablet 2.5 mg PO BID Qty: 30 RF: 0 pseudoephedrine-guaifenesin [Mucinex D] 60-600 mg tablet extended release 12 hr 2 tab PO BID Qty: 28 RF: 0 Continued albuterol sulfate 90 mcg/actuation HFA aerosol inhaler 2 puff INHALATION Q4H PRN PRN (Reason: Shortness Of Breath) RF: 0 Discontinued doxycycline hyclate 100 mg capsule 100 mg PO BID RF: 0 guaifenesin [Mucinex] 600 mg Tablet Extended Release 12hr 600 mg PO BID RF: 0 Referrals / Follow Up: Alejandro Berg DO [Primary Care Provider] - Within 2 Weeks Disposition Disposition (needs filled in before D/C Order can be placed): Home, Self Care Charges/Coding Visit Charges Inpatient E&M: 92521 Disch Hosp
[2021-05-05 13:24] VITALS: BP 111/59; PULSE 66; RESP 18; TEMP 37.2; O2SAT 94
--- NOTE | 2021-05-06 14:08 | CASEMGMT ---
LIBBY MONK Discharge Follow-up Phone Call: LORIERoya: Gil Strata: 1 Call Date: 05/06/21 Discharge Date: 05/05/21 Time of Call: [id number] Duration: 5 min Admitting Diagnosis: Covid LIBBY MONK comleted follow-up phone call after recent hospitalization. Patient states she is tired and weak. Patient states she has been wearing her oxygen continuously. Patient was able to get prescriptions filled without any issues. Patient aware to schedule follow-up appt. Patient states she has had some nose bleeds that she has gotten to stop. Encourage patient to use nasal spray as oxygen could be drying her nares, advised patient that should it continue to contact PCP office. Patient voiced understanding and had no further questions or concerns.
== END 2021-05-05 16:17 | disposition home or self-care (01) | DRG 177 ==
LOC: ED 21:07 → PCU 05-04 08:24
PROVIDERS: Admitting Provider Family Medicine; Emergency Provider Emergency Medicine; PCP Student in an Organized Health Care Education/Training Program; Visit Provider Internal Medicine
DX: U07.1 COVID-19 (principal); J12.82 Pneumonia due to coronavirus disease 2019; J15.9 Unspecified bacterial pneumonia; J96.01 Acute respiratory failure with hypoxia; Z87.891 Personal history of nicotine dependence
CPT/HCPCS: 36415; 71045; 71275; 80048; 80053; 83605; 84145; 84484; 85025; 85379; 87040; 87070; 87205; 87449; 93005; 94667; 99285; J7030; J7050; Q9967; A4216

== ENCOUNTER 2021-07-07 10:01 | Day surgery (SDC) | payer MEDICARE, OTHER, SELFPAY ==
[2021-07-07] VITALS (9 sets, daily range): BP systolic 95–122; BP diastolic 48–69; PULSE 74–93; RESP 16–18; TEMP 36.3–36.8; O2SAT 92–100; BMI 29.8
--- NOTE | 2021-07-07 | IMM_PTH ---
PATIENT: ARCADIO DAVE LOC: [facility] [place] U#:[id number] AGE/SX: 65/F ROOM: RE07/07/[address]: Dr. Rachel Rich DO : 1955 BED: DIS: 07/07/2021 SPEC #: [id number] RECD: 07/11/21 12:38 STATUS: FELICITA RERey #: [id number] MAXINE: 07/07/21 00:[address]: Rachel Rich DEPT: IMMUNOHISTOCHEMISTRY RECD BY: Laverne Sanchez ENTERED: 07/11/21 12:38 SP TYPE: IMMUNO OTHR DR: Dr. Alejandro Berg DO Tissues: A - Endometrium, NOS B - Vagina, NOS Procedures: p16 (initial) KI-67 (add) PHYSICIAN & INSTITUTION [place] [id number] SPECIMEN INFORMATION: Tissue Source: A ? Endometrial curettings, B ? Vaginal polyps Clinical Info: Vaginal polyp Specimen Number: [id number] A & B CPT code: 67052 x2, 32980 x2 METHODOLOGY: Deparaffinized sections of prefer/formalin-fixed tissue or PAP/DQ stained slides are incubated with monoclonal/polyclonal antibodies/oligonucleotide probes. Localization is made via biotin free immunoperoxidase method. Appropriate controls are performed and reacted as expected. Results on target cell population are indicated in the following table: RESULTS: ANTIBODY / CLONE RESULT Block A P16 (E6H4) positive, patchy, dim Ki-67 (30-9) positive, low Block B P16 (E6H4) negative Ki-67 (30-9) positive, low These tests were developed and their performance characteristics determined by [facility]. They may not have been cleared or approved by the U.S. Food and Drug Administration. The FDA has determined that such clearance or approval is not necessary. The above immunohistochemical/dualISH markers are ordered and reviewed by the Pathologist. INTERPRETATION: A. Endometrium, curettings: Rare squamous cells suspicious for HPV change. B. Vaginal polyps, biopsy: No evidence of dysplasia. AM:aquiles 07/12/2021
--- NOTE | 2021-07-07 | EMB_PTH ---
PATIENT: ARCADIO DAVE LOC: [facility] [place] U#:[id number] AGE/SX: 65/F ROOM: RE07/07/[address]: Dr. Rachel Rich DO : 1955 BED: DIS: 07/07/2021 SPEC #: [id number] RECD: 07/07/21 15:23 STATUS: FELICITA MARCOS #: [id number] MAXINE: 07/07/21 00:[address]: Rachel Rich DEPT: SURGICAL PATHOLOGY RECD BY: Van Garcia ENTERED: 07/08/21 09:50 SP TYPE: ENDOM BX/C ELMO DR: Dr. Alejandro Berg DO Tissues: A - Endometrium, NOS B - Vagina, NOS Procedures: Surgery Specimen Level IV HEADER OPERATION: Hysteroscopy, D & C, vaginal polyp removal PRE-OP DIAGNOSIS: Vaginal polyp TISSUE SUBMITTED: A ? Endometrial curettings, B ? Vaginal polyps MICROSCOPIC DIAGNOSIS A. Endometrium, curettings: Scant strips of benign superficial glandular mucosa. Disarticulated squamous cells with changes suspicious for HPV change. B. Vaginal polyps, biopsy: Benign ectocervical polyps, mildly inflamed. No evidence of dysplasia. See comment. AM:aquiles 07/11/2021 COMMENT A & B. Results from immunohistochemistry ([id number]) for surrogate HPV marker (p16) will be reported separately. Case has been reviewed in consultation with Dr. Lucas who concurs with the above diagnosis. IDC:SJ MICROSCOPIC DESCRIPTION Slides are reviewed. GROSS DESCRIPTION A - Received in fixative is one container labeled with the patient's name and designated endometrial curettings. The specimen consists of multiple fragments of hemorrhagic soft tissue that in aggregate measure 1.5 x 1.5 x 0.3 cm. The specimen is totally submitted in one cassette. B - Received in fixative is one container labeled with the patient's name and designated vaginal polyps. The specimen consists of two polypoid fragments of hagan soft tissue measuring 0.8 x 0.6 x 0.3 cm and 0.6 x 0.3 x 0.3 cm. The entire specimen is submitted in one cassette. / ARDEN:aquiles 07/08/21 TC:3 CPT: 20681 x2
[2021-07-07] MEDS: Lactated Ringers 1,000 ML 15 ML IV (10:57)
[2021-07-07 11:54] LABS: Hematocrit 45.2 % (37-47); Hemoglobin 14.5 g/dL (12.0-15.0); Mean Corp Hgb Conc 32.1 g/dL (32-36); Mean Corpuscular Volume 87.4 fL (81-99); Platelet Count 233 K/mm3 (150-450); RBC Distribution Width CV 13.3 % (11.6-14.6); RBC Distribution Width SD 42.8 fl (35.1-43.9); Red Blood Count 5.17 M/mm3 (4.2-5.4); White Blood Count 7.3 K/mm3 (4.4-11.0)
[2021-07-07 12:07] LABS: Anion Gap 8 (5-15); BUN 10 mg/dL (7-18); BUN/Creat Ratio 13.1 RATIO (10-20); Calcium,Total 9.3 mg/dL (8.5-10.1); Chloride 100 mmol/L (98-107); Creatinine, Serum 0.77 mg/dL (0.55-1.02); EST Glomerular Filtration Rate 80 mL/min (>60); Est Glom Filt Rate - Afr Amer 97 mL/min (>60); Estimated Creatinine Clearance 52.32 ml/min; Glucose 91 mg/dL (74-106); Sodium Level 137 mmol/L (136-145)
--- NOTE | 2021-07-07 13:47 | PCM.DC ---
Discharge Instructions Diet Discharge Diet: No restrictions Activity Discharge Activity: May Drive (After 24 hours) and May Shower May resume sexual activity in: 1 week (No tampons, intercourse, hot tub, tub baths, swimming pools) Weight Bearing Status: Weight bearing as tolerated Lifting Restrictions: None Dressing / Incision Call your doctor if you observe: Fever of 101 or Higher, Coldness, Increased Pain, Numbness or Tingling, Change in Color, Inability to urinate, Inability to have a bowel movement, Using more than 1 pad per hour, Shortness of breath, Dizziness, Fainting spells, Swelling in the ankles, Chest pain, Increased palpitations (irregular heartbeat), Calf discomfort and Uncontrolled pain Follow Up Care Please Follow Up With: Layla When: 1 week Test Results: Test results from this visit will be discussed in further detail at your follow-up appointment, if applicable. Discharge Plan Admission Attending Provider: Rachel Rich Primary Care Provider: Alejandro Berg Discharge Orders/Prescriptions Prescriptions: No Action Eliquis 2.5 mg tablet 2.5 mg PO BID Qty: 30 RF: 0 misoprostol 100 mcg Tablet 100 mcg vaginal DAILY RF: 0 albuterol sulfate 2.5 mg /3 mL (0.083 %) Solution For Nebulization 2.5 mg INHALATION Q4H PRN (Reason: SOB) RF: 0 Disposition Discharge Orders: Discharge Patient (Routine); Ordered 07/07/21 Ordered By: Dr. Rachel Rich
[2021-07-07] MEDS: Lidocaine 1% (20 ml mdv) 20 ML Vial (14:00)
--- NOTE | 2021-07-07 14:20 | PCM.OPRPT ---
Report of Operation Date of Procedure: 07/07/21 Pre-Operative Diagnosis: Endometrial fluid on pelvic ultrasound, family history of uterine cancer, vaginal polyp Post-Operative Diagnosis: As above Surgery/Procedure Performed:: Hysteroscopy, D&C, vaginal polypectomy Description of Surgical Findings:: Normal-appearing uterine cavity and bilateral tubal ostia were visualized. Atrophic appearing endometrium. No endometrial polyps or uterine fibroids noted. Normal cervical canal with no cervical polyps. Atrophic cervix. No descent of uterus and cervix. There were 2 vaginal polyps noted at the 10 o'clock position near the cervicovaginal junction. Surgeon: Layla bander and cellophaner machine helper: None Type of Anesthesia: MAC Special Medications: None Specimen's removed: Endometrial curetting and vaginal poylp Drains: None Estimated Blood Loss (mL): < 50 cc Fluids Replaced: 0 cc fluid deficit Description of Procedure: Patient was taken to the operating room where MAC anesthesia was found to be adequate. She was prepped and draped in the dorsal llithotomy position using yellowfin stirrups. A weighted speculum was placed in the vagina to expose the cervix. A single-tooth tenaculum was placed on the anterior lip of the cervix. 10 cc of local were injected for paracervical block. The cervix was serially dilated to accommodate the hysteroscope. Hysteroscope was advanced to the fundus of the uterus and the uterus was distended with normal saline. The endometrium was atrophic appearing. The uterine cavity was normal. There were no polyps or fibroids noted. Bilateral tubal ostia were visualized. The hysteroscope was then slowly removed through the cervical canal. Pictures were taken. A sharp curettage was performed for minimal amount of tissue. Endometrial curettings were sent to pathology for review. An Allis clamp was used to grasp the 2 vaginal polyps. Local was then injected at the base of the 2 polyps. Using an 11 blade scalpel the polyps were removed at the base. Hemostasis was achieved with pressure. All instruments were removed from the vagina. Bleeding was hemostatic. The patient was taken to recovery in stable condition. Instrument, sponge, needle counts were correct. Vaginal sweep was performed. Grafts/Implants Used: None Procedure Start Time: 14:00 Procedure Stop Time: 14:19 Complications None Admit VTE Documentation VTE Present on Admission: No VTE Mechan Device Prophylaxis: SCD's VTE Pharm Prophylaxis ordered?: No
== END 2021-07-07 16:14 | disposition home or self-care (01) ==
LOC: SDC 10:03 → AC 10:05
PROVIDERS: PCP Student in an Organized Health Care Education/Training Program; Referring Provider Obstetrics & Gynecology; Visit Provider Obstetrics & Gynecology
PROC: 0UB98ZZ Excision of Uterus, Via Natural or Artificial Opening Endoscopic (ICD-10-PCS; CPT 58558; principal; 2021-07-07 12:30)
DX: N84.1 Polyp of cervix uteri (principal); R06.02 Shortness of breath; M19.90 Unspecified osteoarthritis, unspecified site; Z85.42 Personal history of malignant neoplasm of other parts of uterus; Z87.891 Personal history of nicotine dependence; Z79.02 Long term (current) use of antithrombotics/antiplatelets
CPT/HCPCS: 00952; 58558; 80048; 85027; 88305; 88341; 88342; J7120

== ENCOUNTER → 2023-12-03 | Outpatient (CLI) | payer MEDICARE, OTHER, SELFPAY ==
--- NOTE | 2023-12-03 08:15 | US_ITS ---
STUDY: ABDOMINAL ULTRASOUND - RIGHT UPPER QUADRANT; ELASTOGRAPHY REASON FOR VISIT: Female, 68 years old. Fatty infiltration of the liver. TECHNIQUE: Ultrasound evaluation of the right upper quadrant was performed with real-time and static fishman-scale imaging. Point quantification shear wave elastography was performed (light). TECHNICAL QUALITY: Adequate. COMPARISON: None. FINDINGS: Liver: The liver measures 14.4 cm. There is increased echogenicity consistent with fatty infiltration. The bile ducts are within normal limits. There is hepatic color flow. The direction of portal flow is hepatopetal. There is no demonstrated mass lesion. Median liver stiffness measured 7.8 kPa. Gallbladder: Normal distended gallbladder. The gallbladder wall measures 2.0 mm. There is a negative sonographic Anthony''s sign. There is no pericholecystic fluid. There are no gallstones. Common Bile Duct (C.B.D.): The common bile duct measures 2.9 mm. Pancreas: There is normal echogenicity of the visualized pancreas. There is no demonstrated pancreatic mass or cyst. Right Kidney: Normal size of the right kidney. The right kidney measures 11 cm x 5.7 cm x 4.6 cm. Normal renal cortex. The right cortex measures 1.3 cm. There is no demonstrated renal mass or cyst. There is no right hydronephrosis. US/ABD Limited w/ Elastography IMPRESSION: 1. Liver stiffness measures 7.8 kPa compatible with F2-F3 (Mild to moderate liver fibrosis) Metavir score. Electronically Signed: Sal Philip MD at 11:14 EDT ,
== END | disposition home or self-care (01) ==
LOC: US 08:14
PROVIDERS: PCP Student in an Organized Health Care Education/Training Program; Referring Provider Student in an Organized Health Care Education/Training Program; Visit Provider Student in an Organized Health Care Education/Training Program
DX: K76.0 Fatty (change of) liver, not elsewhere classified (principal); R74.8 Abnormal levels of other serum enzymes
CPT/HCPCS: 76705; 76981